=== PATIENT | male | born 1990 | race Caucasian/White ===

== ENCOUNTER 2016-10-05 16:36 | Inpatient (IN) | payer BC, OTHER ==
[~2016-10-05] VITALS: Ht 180.3 cm; Wt 77.1 kg
--- NOTE | 2016-10-09 17:13 | NUR ---
Intake assessment; Patient is a 26 year old male, AOX4, presented to [facility] to detoxify from Heroin and Methamphetamine. Patient is from [place] and arrived at intake office at approximately 1600. he is the primary source of information. Patient appears nervous, anxious but remained cooperative during assessment. Patient's admitting vital signs are as follows; BP 140/86, HR 82, Respirations 18, Spo2 98%, temperature of 97.8, weight of 170lbs and height of 5'11, patient denies pain at this time. NKA, denies seizure history. Educated patient regarding unit policies and protocols, verbalized understanding. Will continue with further interview when patient is up on the unit.
[2016-10-09] MEDS ORDERED: TRAZ-147 PO (17:15)
[2016-10-09] MEDS ORDERED: CLON0.1T PO (17:15)
[2016-10-09] MEDS ORDERED: GABA600T2 PO (17:15)
[2016-10-09] MEDS ORDERED: GABA-534 PO (17:15)
[2016-10-09] MEDS ORDERED: METH-406 PO (17:15)
[2016-10-09] MEDS ORDERED: ONDA-25 PO (17:15)
--- NOTE | 2016-10-09 18:19 | NUR ---
Admission note; Patient is a 26 year old male, AOX4, presented to [facility] to detoxify from Heroin and Methamphetamine. Patient is from [place] and arrived at intake office at approximately 1600. he is the primary source of information. Patient appears nervous, anxious but remained cooperative during assessment. Patient's admitting vital signs are as follows; BP 140/86, HR 82, Respirations 18, Spo2 98%, temperature of 97.8, weight of 170lbs and height of 5'11, patient denies pain at this time. NKA, denies seizure history. Educated patient regarding unit policies and protocols, verbalized understanding. Patient is admitted under the care of Dr. Zimmerman to room 308. Urine provided by patient for urine drug screen. Thorough body and belonging check done by [employer]LAV[employer] COMPOUND[employer]. Discussed substance use history. Patient first started using Heroin when he was 18 year old and progressed to daily use 2 years ago. Currently he smokes /injects via IV approximately 1gram to 1.5 grams of heroin last used 10/09/16 at 1100. Patient also reported using Methamphetamine since he was 19 year old and progressed to daily use 6 months ago. Currently he smokes/inject via IV approximately 1 gram of meth, last used 10/09/16 at 1400. Patient denies any past medical / psychiatric history. Family medical history discussed. His parents both have history of substance and alcohol abuse. Patient lives with his girlfriend and currently works at [employer]. Patient does not have a primary care physician. Skin check done with no significant findings. Patient had multiple attempts to sobriety. Patient was recently at [facility] for 2 days and was discharged on 10/05/16, he then relapsed right after discharge. Patient also reported that he has been to [facility]. Patient current COWS score is 2. Patient oriented to unit by [employer]VOR COMPOUNDER. Detailed report given to MD. Safety measures in place. Will continue to monitor patient.
[2016-10-09 18:44] LABS: *AMPHETAMINE, URINE POSITIVE (NEGATIVE); *BARBITURATE, URINE NEGATIVE (NEGATIVE); *CANNABINOID, URINE NEGATIVE (NEGATIVE); *COCCAINE, URINE NEGATIVE (NEGATIVE); *OPIATE, URINE POSITIVE (NEGATIVE); *PHENCYCLIDINE SCREEN,URINE NEGATIVE (NEGATIVE)
--- NOTE | 2016-10-09 18:55 | NUR ---
End of shift note; Patient is AOX4. MD notified of patient's current condition. Patient to be evaluated by MD during rounds tomorrow. Detailed report given to patient. Met all needs.
[2016-10-09 20:00] VITALS: BP 136/91
[2016-10-09] MEDS ORDERED: BUPRENORPHINE HCL 2 MG TAB.SUBL SL PRN (20:00)
[2016-10-09] MEDS ORDERED: LOPERAMIDE HCL 2 MG CAPSULE PO PRN ×2 (20:00)
[2016-10-09] MEDS ORDERED: METHOCARBAMOL 750 MG TABLET PO PRN (20:00)
[2016-10-09] MEDS ORDERED: MAG HYDROX/AL HYDROX/SIMETH 30 ML LIQUID UDC PO PRN (20:00)
[2016-10-09] MEDS ORDERED: ONDANSETRON ODT 4 MG TAB.RAPDIS SL PRN (20:00)
[2016-10-09] MEDS ORDERED: MAGNESIUM HYDROXIDE 30 ML LIQUID UDC PO PRN (20:00)
[2016-10-09] MEDS ORDERED: PROMETHAZINE HCL 25 MG/1 ML VIAL IM PRN (20:00)
[2016-10-09] MEDS ORDERED: MIRALAX 17 GM POWD.PACK PO PRN (20:00)
[2016-10-09] MEDS ORDERED: HYDROXYZINE PAMOATE 25 MG CAPSULE PO PRN (20:00)
[2016-10-09] MEDS ORDERED: diphenhydrAMINE 50 MG CAPSULE PO PRN (20:00)
[2016-10-09] MEDS ORDERED: CLONIDINE HCL 0.1 MG TABLET PO PRN (20:00)
[2016-10-09] MEDS ORDERED: DICYCLOMINE HCL 20 MG TABLET PO PRN (20:00)
[2016-10-09] MEDS ORDERED: IBUPROFEN 400 MG TABLET PO PRN (20:00)
[2016-10-09] MEDS ORDERED: ACETAMINOPHEN 325 MG TABLET PO PRN (20:00)
--- NOTE | 2016-10-09 20:00 | NUR ---
Start of Shift Patient is a 26-year old, male, admitted for Heroin and Methamphetamine Dependence. Pt denies any medical or psych history. Pt is AAOx4, no SOB noted, ambulatory with steady gait and with intact skin. Pt is on Regular Diet, NKA and is Full Code. Fall, universal and safety prec in place. Call light within reach. Latest COWS=3. Will continue to monitor.
[2016-10-09 20:56] LABS: BASOPHILS % (AUTO) 0.7 % (0.0-2.0); EOSINOPHILS # (AUTO) 0.1 K/uL (0.0-0.7); EOSINOPHILS % (AUTO) 1.6 % (0.0-7.0); HEMOGLOBIN 15.8 G/DL (14.0-18.0); LYMPHOCYTES # (AUTO) 2.1 K/UL (0.8-4.8); LYMPHOCYTES % (AUTO) 30.4 % (20.5-51.5); MEAN CORPUSCULAR HEMOGLOBIN 28.1 UUG (27.0-31.0); MEAN CORPUSCULAR HGB CONC 34 g/dL (32.0-37.0); MEAN CORPUSCULAR VOLUME 82.2 FL (82.0-92.0); MONOCYTES # (AUTO) 0.4 K/UL (0.1-1.30); MONOCYTES % (AUTO) 6.1 % (0.0-11.0); NEUTROPHILS # (AUTO) 4.5 K/UL (1.8-8.9); NEUTROPHILS % (AUTO) 61.2 % (38.5-71.5); PLATELET COUNT (AUTO) 227 K/UL (150-450); WHITE BLOOD COUNT (AUTO) 7.1 K/UL (4.0-11.2)
[2016-10-09 21:02] LABS: ALANINE AMINOTRANSFERASE 42 U/L (16-63); ALKALINE PHOSPHATASE 112 U/L (50-136); AMYLASE 74 U/L (25-115); ASPARTATE AMINOTRANSFERASE 25 U/L (15-37); BILIRUBIN,TOTAL 0.3 mg/dL (0.2-1.0); CARBON DIOXIDE 31 mmol/L (21-32); CHLORIDE 103 mmol/L (98-107); GLUCOSE 99 mg/dL (74-106); LIPASE 133 U/L (73-393); MAGNESIUM 2.2 mg/dL (1.8-2.4); POTASSIUM 3.7 mmol/L (3.5-5.1); TOTAL PROTEIN, SERUM 8.5 g/dL (6.4-8.2); UREA NITROGEN, BLOOD 10 mg/dL (7-18)
--- NOTE | 2016-10-09 21:05 | NUR ---
RN note PRN Trazodone Pt with home med of Trazodone 100 mg PO HS PRN. Contacted Dr. Russell and ordered to continue the medication. Entered at [facility].
[2016-10-09 21:08] LABS: THYROID STIMULATING HORMONE 0.873 mIU/mL (0.358-3.740)
[2016-10-09 21:12] LABS: ETHANOL < 3 MG/DL (0-0)
[2016-10-09] MEDS ORDERED: TRAZODONE 100 MG TABLET PO PRN (21:15)
[2016-10-10] VITALS: BP 127/85
[2016-10-10 04:00] VITALS: BP 130/81
--- NOTE | 2016-10-10 07:06 | NUR ---
End of Shift Patient is a 26-year old, male, admitted for Heroin and Methamphetamine Dependence. Pt denies any medical or psych history. Pt is AAOx4, no SOB noted, ambulatory with steady gait and with intact skin. With mild anxiety noted. Pt is on Regular Diet, NKA and is Full Code. Fall, universal and safety prec in place. Call light within reach. Latest COWS=3, slept for 7 hours. Endorsed to AM shift nurse for continuity of care.
[2016-10-10] MEDS ORDERED: ONDANSETRON 4 MG/2 ML VIAL IM PRN (07:15)
--- NOTE | 2016-10-10 07:45 | NUR ---
START OF SHIFT Rcvd endorsement from ongoing nurse, client is in bed, he is a/o to name, time, place, he presents with depressed mood, flat affect. flushed face, moist skin, enlarged pupils, he reports chills/cold, he denies any N/V/D. He denies SI/HI. Encourage to increase fluid intake as tolerated to facilitate detox. Encourage client to attend group therapy for skills to maintain sobriety. Last COWS 3@ 2400, he slept for 7 hrs. Client admitted for heroin and methamphetamine withdrawal, his urine screen drug tested positive for benzodiazepine; client reports taking Xanax for the first time at age 16, and for the past five years he consumes 2 bars every couple of weeks, last used 2 bars on 10/07/16. PRN Subutex 4mg Q4H for COWS >/= 12 to manage withdrawal symptoms. Client denies hx of withdrawal-induced seizure. Regular Diet, NKA, Full Code. Seizure and fall precautions.. Call light within reach. Side rails x 2 up/padded. Jesse in lowest/locked position. Will continue to monitor.
[2016-10-10 08:36] VITALS: BP 133/89
[2016-10-10] MEDS ORDERED: TUBERCULIN,PURIF.PROT.DERIV. 5 TU/0.1 ML TEST ID ONE (09:00)
[2016-10-10] MEDS: MULTIVITAMINS,THERAPEUTIC TABLET PO SCH (09:46)
--- NOTE | 2016-10-10 09:47 | NUR ---
TB TEST ADMINISTERED TO L F/A, CLIENT TOLERATED WELL.
--- NOTE | 2016-10-10 10:39 | NUR ---
Clinician encouraged client to attend morning group. Client said he was going to start taking his detox meds but would do his best to attend.
--- NOTE | 2016-10-10 10:42 | NUR ---
PRN Subutex 4mg SL Client reports chills/cold, anxiety, he presents with anxious mood, flushed face, longer than normal pupil, teary eyes, yawning. COWS 12. Subutex 4mg SL administered, will continue to monitor.
--- NOTE | 2016-10-10 11:00 | NUR ---
Dr. Zimmerman made aware of client positive for benzodiazepine. Client reports consuming 2 bars every two weeks for the past 5 years, last used 2 days ago prior to admission. NNO to assess for CIWA.
--- NOTE | 2016-10-10 11:12 | NUR ---
Reassessment PRN Subutex 4mg SL Client reports chills/cold, flushed face, longer than normal pupil, teary eyes, yawning x 1. COWS 10. Encourage to increase fluid intake as tolerated to facilitate detox. Will continue to monitor.
[2016-10-10] MEDS: BUPRENORPHINE HCL 2 MG TAB.SUBL SL SCH ×3 (12:29→20:30)
[2016-10-10 12:31] VITALS: BP 146/93
[2016-10-10] MEDS: GABAPENTIN 300 MG CAPSULE PO SCH ×2 (14:05→20:29)
[2016-10-10 16:45] VITALS: BP 147/95
[2016-10-10] MEDS ORDERED: TRAZODONE 100 MG TABLET PO SCH (18:00)
--- NOTE | 2016-10-10 18:54 | NUR ---
END OF SHIFT Endorsed care to incoming nurse, client is in room, he presents with anxious mood, clammy skin, he denies any N/V/D. He is on day first of 5 day Subutex taper with no ASE and effective for managing withdrawal symptoms such as anxiety, irritability, clammy skin, chills, goosebump. PRN Subutex 4mg for COWS 12, after 0.5 hr COWS 10. Last COWS 10 @ 1700. Adequate intake 1210mL and output, void x 2, stool x 1. Client denies a history of withdrawal-induced seizures. NKA, full code, regular diet, placed on fall precautions. Bed in lowest/locked position. Side rails x 2 up/padded. Call light within reach.
--- NOTE | 2016-10-10 18:54 | NUR ---
START OF SHIFT NOTE: Patient endorsed by Angelica day shift nurse. Patient is a 26 year old male admitted to [facility] for Benzodiazepines, Opioid, Meth dependence. Patient is on 5 Day Subutex taper, tolerated well Patient has NKA, is on Regular Diet, and is Full Code status. Patient is on Seizure and Fall Precautions. Patient denies History of Seizure. Patient denies PMH, Past Surgery History. Patient reports of "Heroin IV uses every day 1 gram - 1,5 gram since 2014. Last time - 0.1 gram on 10/09/16". Meth IV/Snored " During 6 months every day of 1 gram. Last used "unknown doze" on 10/09/16". Xanax PO "2 bars every two weeks since 2011. Last used 2 bars on 10/08/16". Last COWS 10 at 16:45. Patient presented with withdrawal S/S of anxiety, agitation, nervousness, sweating, pupil size for Room Light larger than normal size, restlessness, body aches, nose running and tearing, yawning, tachycardia. Last VS at 1645: T:98'3; HR: 96; Room Air O2Sat: 98%; BP 147/95; RR: 18. Respirations even and unlabored. Patient denies SOB and chest pain. Patient denies pain: "0/10". Bowel Sounds is active in all 4 quadrants. Last BM's today "in the morning". Patient denies N/V and diarrhea. Skin is intact, warm and dry by touch. Patient remains compliant with therapeutic plan and medications. All needs met. Safety measures on the place. Call light within reach, bed in the lowest position and locked. Padded rails up x2. Will continue to monitor closely.
[2016-10-10 20:00] VITALS: BP 139/84
[2016-10-11] VITALS: BP 131/98
[2016-10-11 04:00] VITALS: BP 124/81
--- NOTE | 2016-10-11 07:03 | NUR ---
END OF SHIFT NOTE: Patient endorsed to day shift nurse in stable condition. Patient is a 26 year old male admitted to [facility] for Benzodiazepines, Opioid, and Meth dependence. Patient is on 5 Day Subutex taper, tolerated well. Patient has NKA, is on Regular Diet, and is Full Code status. Patient is on Seizure and Fall Precautions. Patient denies History of Seizure. Patient denies PMH, Past Surgery History. Last COWS=6,CIWA=3 at 0400. Patient presented with withdrawal S/S of anxiety, agitation, nervousness, sweating, pupil size for Room Light larger than normal size, restlessness, body aches, nose running and tearing, yawning, and tremors that can be felt. Last VS at 0400: T:98'4; HR: 66; Room Air O2Sat: 99%; BP: 124/81; RR: 18. Respirations even and unlabored. Skin is intact, warm and dry to touch. Patient remains compliant with therapeutic plan and medications. Patient slept 9 hours, intake 750 ml, voided x2. All needs met. Safety measures on the place. Call light within reach, bed in the lowest position and locked. Padded rails up x2.
--- NOTE | 2016-10-11 07:35 | NUR ---
START OF SHIFT Received report from cook night nurse. 26 year old male patient admitted on 10/09/16 for heroin, methamphetamine and Xanax dependence. Pt has been placed on a 5 day Subutex taper and is tolerating well. A/O x4, NKA, full code, regular diet. Denies primary medical history. Pt ambulates with steady gait, no assistance needed. V/S remain WNL. RR even and unlabored. Pt did not need or receive any PRN medications throughout night, slept for 9 hours. Most recent COWS is 6 and CIWA is 3. All needs met at this time. Safety precautions are in place, will continue to monitor.
[2016-10-11 08:06] VITALS: BP 130/94
[2016-10-11] MEDS: GABAPENTIN 300 MG CAPSULE PO SCH ×3 (09:40→20:51)
[2016-10-11] MEDS: BUPRENORPHINE HCL 2 MG TAB.SUBL SL SCH ×3 (09:40→20:51)
[2016-10-11] MEDS: MULTIVITAMINS,THERAPEUTIC TABLET PO SCH (09:40)
[2016-10-11 12:29] VITALS: BP 130/94
--- NOTE | 2016-10-11 13:00 | NUR ---
PT ROUNDING Pt is stable, pt attends groups and activities. No acute discomfort noted. Pt encouraged to verbalize feelings. Will continue to monitor.
[2016-10-11 17:10] VITALS: BP 130/90
--- NOTE | 2016-10-11 18:51 | NUR ---
END OF SHIFT Endorsed to microgrinder operator nurse. 26 year old male patient admitted on 10/09/16 for heroin, methamphetamine and Xanax dependence. Pt has been placed on a 5 day Subutex taper and is tolerating well. A/O x4, NKA, full code, regular diet. Denies primary medical history. No PRN medication needed or administered throughout day. Most recent COWS 4 and CIWA 3. Reports BM x2. Pt reports he feels much better today and is seen socializing with peers, attends groups. All needs met at this time. Has adequate caloric and fluid intake. V/S remain WNL. Safety precautions are in place, will continue to monitor.
[2016-10-11 20:00] VITALS: BP 139/87
--- NOTE | 2016-10-11 20:00 | NUR ---
Start of Shift Patient is a 26-year old, male, admitted for Heroin and Methamphetamine Dependence. Pt denies any medical or psych history. Pt placed on a 5-day Subutex Taper, started on 10/10/2016. Pt is AAOx4, no SOB noted, ambulatory with steady gait and with intact skin. Pt is on Regular Diet, NKA and is Full Code. Fall, universal and safety prec in place. Call light within reach. Latest COWS=3, CIWA=4. No c/o pain at this time. Will continue to monitor.
[2016-10-12] VITALS: BP 132/85
[2016-10-12 04:00] VITALS: BP 133/88
[2016-10-12 04:06] LABS: HEPATITIS B SURFACE AG Negative (Negative)
--- NOTE | 2016-10-12 07:03 | NUR ---
End of Shift Patient is a 26-year old, male, admitted for Heroin and Methamphetamine Dependence. Pt denies any medical or psych history. Pt placed on a 5-day Subutex Taper, started on 10/10/2016. Pt is AAOx4, no SOB noted, ambulatory with steady gait and with intact skin. Pt is on Regular Diet, NKA and is Full Code. Fall, universal and safety prec in place. Call light within reach. Latest COWS=2, CIWA=2, slept for 6 hours. No c/o pain at this time. Endorsed to AM shift nurse for continuity of care.
--- NOTE | 2016-10-12 07:43 | NUR ---
Start of shift note; Received report from night nurse. Patient is a 26 year old male admitted on 10/09/16 for Opiate dependence. Patient was placed on 5 day Subutex taper, no adverse reactions noted. No PMH noted. NKA, on full code status, regular diet. Patient is on full fall precaution. Bed in lowest position, call light within reach. Will continue to monitor patient.
[2016-10-12 08:00] VITALS: BP 129/79
[2016-10-12] MEDS: MULTIVITAMINS,THERAPEUTIC TABLET PO SCH (08:36)
[2016-10-12] MEDS: GABAPENTIN 300 MG CAPSULE PO SCH ×5 (08:36→21:07)
[2016-10-12] MEDS ORDERED: BUPRENORPHINE HCL 2 MG TAB.SUBL SL SCH (09:00)
[2016-10-12 12:00] VITALS: BP 128/87
[2016-10-12] MEDS: BUPRENORPHINE HCL 2 MG TAB.SUBL SL SCH ×2 (14:05→20:59)
[2016-10-12 16:00] VITALS: BP 130/85
--- NOTE | 2016-10-12 18:55 | NUR ---
End of shift note; Patient is AOX4. Patient remained compliant with treatment plan and medication regime. Medications were effective in reducing withdrawal symptoms. All safety measures secured. Met all needs.
--- NOTE | 2016-10-12 19:42 | NUR ---
START OF SHIFT Patient is a 26-year old, male, admitted for Heroin and Methamphetamine Dependence. Pt denies any PMH. Pt placed on a 5-day Subutex Taper, started on 10/10/2016. Pt is A/O X 4, no SOB noted, ambulates with steady.Skin is intact. Pt is on Regular Diet, NKA and is Full Code. Fall, universal and safety precautions in place. Call light within reach. Latest COWS=4, CIWA=2. No c/o pain at this time. Will continue to monitor.
[2016-10-12 20:00] VITALS: BP 127/90
--- NOTE | 2016-10-12 21:27 | NUR ---
PT WAS GIVEN NEURONTIN 300 MG PO.NEW ORDER SEEN FOR NEURONTIN 600 MG AT 2100.CLARIFIED WITH DR JIMÉNEZ.NON ADMINISTERED NEURONTIN 600 MG.WILL ADMINISTER EXTRA DOSE OF 300 MG PER ORDER.
[2016-10-12] MEDS ORDERED: GABAPENTIN 300 MG CAPSULE PO SCH (21:30)
[2016-10-13] VITALS: BP 129/90
[2016-10-13 04:00] VITALS: BP 125/85
--- NOTE | 2016-10-13 06:42 | NUR ---
END OF SHIFT Patient is a 26-year old, male, admitted for Heroin and Methamphetamine Dependence. Pt denies any PMH. Pt placed on a 5-day Subutex Taper, started on 10/10/2016. Pt is A/O X 4, no SOB noted, ambulates with steady.Skin is intact. Pt is on Regular Diet, NKA and is Full Code. Fall, universal and safety precautions in place. Call light within reach. Latest COWS=1, CIWA=1.No PRN meds given last night;Pt slept 6 hrs last night;fluid intake was 1600 mls,voided x 3,BM x 1. No c/o pain at this time. Will continue to monitor.
--- NOTE | 2016-10-13 07:50 | NUR ---
Start of shift note; Received report from night nurse. Patient is a 26 year old male admitted on 10/09/16 for Opiate dependence. Patient was placed on 5 day Subutex taper, no adverse reactions noted. No PMH noted. NKA, on full code status, regular diet. Patient is on full fall precaution. Patient's last COWS is 1 and CIWA of 1 at 0400. Bed in lowest position, call light within reach. Will continue to monitor patient.
[2016-10-13 08:00] VITALS: BP 131/84
[2016-10-13] MEDS: BUPRENORPHINE HCL 2 MG TAB.SUBL SL SCH ×3 (08:34→20:02)
[2016-10-13] MEDS: MULTIVITAMINS,THERAPEUTIC TABLET PO SCH (08:34)
[2016-10-13] MEDS: GABAPENTIN 300 MG CAPSULE PO SCH ×3 (08:34→20:02)
[2016-10-13 12:00] VITALS: BP 120/80
[2016-10-13 16:00] VITALS: BP 130/88
--- NOTE | 2016-10-13 18:30 | NUR ---
End of shift note; Patient is AOX4. Patient remained compliant with treatment plan and medication regime. Medications were effective in reducing withdrawal symptoms. All safety measures secured. Patient's last COWS score is 3 and last CIWA score is 1 at 1600. Met all needs.
--- NOTE | 2016-10-13 20:00 | NUR ---
Start of Shift Note: Report received from day shift nurse. Pt is a 26yo male admitted on 10/09/2016 for medically-supervised withdrawal from opiates and amphetamines. Pt reports using 1-1.5gm heroin daily for 2 years, 1gm methamphetamine daily for 6 months, and 4mg Xanax every two weeks. Pt is on a 5-day Subutex taper. Pt received with last COWS=3, CIWA=1, and no PRN's were given during day shift. Full code status, on regular diet, and reports NKDA/NKFA. Pt reports denies any PMHx. Pt received in room, noted to be flushed and restless, and reports mild anxiety. Bed is in low position and locked, side rails up x2, call light within reach. Will continue to monitor.
[2016-10-13 20:01] VITALS: BP 165/89
[2016-10-14] VITALS: BP 138/97
--- NOTE | 2016-10-14 | NUR ---
COWS/CIWA Deferred: COWS and CIWA deferred for sleep. V/S stable. All safety precautions are in place. Will continue to monitor. Addendum: 10/14/16 at 0219 by RADHA WILD RN Amended: Links added.
[2016-10-14 04:00] VITALS: BP 128/87
--- NOTE | 2016-10-14 04:00 | NUR ---
COWS/CIWA Deferred: COWS/CIWA assessment deferred for sleep. V/S stable. All safety precautions are in place. Will continue to monitor. Addendum: 10/14/16 at 0515 by RADHA WILD RN Amended: Links added.
--- NOTE | 2016-10-14 06:48 | NUR ---
End of Shift Note: Pt is a 26yo male admitted to [facility] on 10/09/2016 for medically-supervised withdrawal from opiates and amphetamines. Pt denies any PMHx. Pt is full code status. Pt is on a regular diet. Pt reports NKDA/NKFA. Pt reports using 1-1.5gm heroin daily for 2 years, 1gm methamphetamine daily for 6 months, and 4mg Xanax every two weeks. Pt continues on a 5-day Subutex taper. Scheduled medication regime effectively managed s/s of withdrawal this shift, and no PRN medications were necessary. Last COWS=6, CIWA=3 at 20:00. V/S stable throughout shift, with elevated HR of 110 at 20:00. Total fluid intake this shift: 2392 ml; output: urine x 2 and BM x 0. Pt is currently in bed and slept 5 hours this shift. All needs have been attended and met. Pt endorsed to day shift nurse.
--- NOTE | 2016-10-14 07:05 | NUR ---
Start of Shift Notes: Received patient in his room. Alert and oriented x 4. Verbally responsive. Able to make needs known. Respirations even and unlabored. No SOB noted. Skin warm and dry to touch. Abdomen soft and non-distended. No complains of N/V/D or abdominal cramps noted. BS (+) in all 4 quadrants. Denies any constipation or diarrhea. Voids independently. Ambulatory with steady gait. Patient is a 26 year old male admitted for opiate and methamphetamine dependence who was placed on a 5-day Subutex taper as ordered. No adverse reactions noted. Denies any past medical hx. NKA. FULL CODE. Regular diet. On fall and seizure precautions. Educated patient on the current plan of care for the day and the medication regimen. Encouraged oral fluid intake and encouraged group participation to learn new skills to prevent relapse. Will continue to monitor closely.
[2016-10-14 08:00] VITALS: BP 132/72
[2016-10-14] MEDS ORDERED: BUPRENORPHINE HCL 2 MG TAB.SUBL SL SCH (09:00)
[2016-10-14] MEDS: GABAPENTIN 300 MG CAPSULE PO SCH ×3 (09:41→20:54)
[2016-10-14] MEDS: MULTIVITAMINS,THERAPEUTIC TABLET PO SCH (09:42)
[2016-10-14 12:00] VITALS: BP 139/91
--- NOTE | 2016-10-14 13:00 | NUR ---
Mid Shift Notes: COWS 2/CIWA 0. Patient is in his room having his lunch. No acute distress noted.
[2016-10-14 15:51] LABS: *AMPHETAMINE, URINE NEGATIVE (NEGATIVE); *BARBITURATE, URINE NEGATIVE (NEGATIVE); *CANNABINOID, URINE NEGATIVE (NEGATIVE); *COCCAINE, URINE NEGATIVE (NEGATIVE); *OPIATE, URINE NEGATIVE (NEGATIVE); *PHENCYCLIDINE SCREEN,URINE NEGATIVE (NEGATIVE)
[2016-10-14 16:00] VITALS: BP 134/89
[2016-10-14] MEDS ORDERED: GABA-534 PO (16:51)
--- NOTE | 2016-10-14 18:44 | NUR ---
End of Shift Notes: Patient is a 26 year old male admitted for ETOH/methamphetamine dependence who was placed on a 5-day Subutex taper as ordered. Last day of taper today. No adverse reactions noted. Prior to admission, patient was using 1-1.5 grams of heroin x 2 years, 1 gram of methamphetamine x 6 months and 2 bars of xanax every 2 weeks. VS monitored closely. No significant abnormalities noted. Withdrawal symptoms were closely monitored. No significant abnormalities noted. Initial COWS 1/CIWA 1 patient presented with mild anxiety. Per patient, Subutex has helped him with her withdrawal symptoms. Compliant with care and treatment. Participated in group. With discharge plans tomorrow. UDS in and resulted. Will continue to monitor.
[2016-10-14 20:00] VITALS: BP 144/94
--- NOTE | 2016-10-14 20:00 | NUR ---
Start of Shift Note: Report received from day shift nurse. Pt is a 26 Y/O male admitted on 10/09/2016 for medically-supervised withdrawal from opiates and amphetamines. Pt reports using heroin 1-1.5gm/day for 2 years, methamphetamine 1gm/day for 6 months, and 4mg Xanax every two weeks. Pt has completed a 5-day Subutex taper and is to discharge tomorrow. Pt received with last COWS=1, CIWA=0, and no PRN's were given during day shift. Full code status, on regular diet, and reports NKDA/NKFA. Pt reports denies any PMHx. Pt received in room, verbalizes readiness for discharge, and denies and s/s of withdrawal. Bed is in low position and locked, side rails up x2, call light within reach. Will continue to monitor.
[2016-10-15] VITALS: BP 122/83
--- NOTE | 2016-10-15 | NUR ---
COWS/CIWA Deferred: COWS and CIWA deferred for sleep. V/S stable. All safety precautions are in place. Will continue to monitor. Addendum: 10/15/16 at 0155 by RADHA WILD RN Amended: Links added.
[2016-10-15 04:00] VITALS: BP 103/63
--- NOTE | 2016-10-15 04:00 | NUR ---
COWS, CIWA Deferred: COWS and CIWA deferred for sleep, V/S stable. Bed in lowest position, side rails up x2, call light within reach. Will continue to monitor. Addendum: 10/15/16 at 0528 by RADHA WILD RN Amended: Links added.
--- NOTE | 2016-10-15 06:55 | NUR ---
End of Shift Note: Pt is a 26 Y/O male admitted to [facility] on 10/09/2016 for medically-supervised withdrawal from opiates and amphetamines. Pt denies PMHx, full code status, regular diet, NKDA/NKFA. Pt reports using 1-1.5gm heroin daily for 2 years, 1gm methamphetamine daily for 6 months, and 4mg Xanax every two weeks. Pt completed a Subutex taper and is to discharge today. Scheduled medication regime effectively managed s/s of withdrawal this shift, and no PRN medications were necessary. Last COWS=1, CIWA=0 at 20:00. V/S stable throughout shift with tachycardia. Total fluid intake this shift: 1301 ml; output: urine x 3 and BM x 2. Pt is currently in bed and slept 5 hours this shift. All needs have been attended and met. Pt endorsed to day shift nurse.
--- NOTE | 2016-10-15 07:15 | NUR ---
Start of shift note SBAR report rcv'd. Pt was admitted for opiate dependence, methamphetamine and benzo abuse. Pt denies any PMhx.Pt has NKA, is a full code and on a regular diet. Pt has completed a 5 day subutex taper without any ASE. Pt is scheduled to discharge today. Pt is currently resting in bed. Pt has no complaints at this time. Will continue to monitor pt.
[2016-10-15 08:00] VITALS: BP 122/77
[2016-10-15] MEDS: GABAPENTIN 300 MG CAPSULE PO SCH (09:13)
[2016-10-15] MEDS: MULTIVITAMINS,THERAPEUTIC TABLET PO SCH (09:13)
--- NOTE | 2016-10-15 09:30 | NUR ---
Discharge note Pt was admitted for opiate dependence. Pt has a COWS of 1 d/t mild anxiety. Pt states that he feels ready for discharge. VS are WNL. LBM was 10/14/16. Pt denies SI/HI. Pt verbalized his understanding of the discharge instructions. All needs addressed at this time. Medications, prescriptions, discharge instructions and all belongings returned to pt. Pt ID band removed, pt ambulated off of unit with [employer]OD[employer] FURNITURE POLISHER, left facility via [facility] [employer].
== END 2016-10-15 09:30 | disposition other institution (70) | DRG 895 ==
LOC: SRC 10-09 16:25
PROVIDERS: ADMIT Internal Medicine; ATTEND Internal Medicine
PROC: HZ2ZZZZ Detoxification Services for Substance Abuse Treatment (ICD-10-PCS; principal; 2016-10-09)
PROC: HZ31ZZZ Individual Counseling for Substance Abuse Treatment, Behavioral (ICD-10-PCS; 2016-10-10)
PROC: HZ41ZZZ Group Counseling for Substance Abuse Treatment, Behavioral (ICD-10-PCS; 2016-10-10)
DX: F11.23 Opioid dependence with withdrawal (principal); F17.210 Nicotine dependence, cigarettes, uncomplicated; Z59.0 Homelessness; Z81.4 Family history of other substance abuse and dependence; F15.120 Other stimulant abuse with intoxication, uncomplicated
CPT/HCPCS: 36415; 70030-TC; 80307; 80324; 80346; 80361; 83690; 83735; 84443; 85025; 86580; 86592; 86705; 86803; 87340; 87806; A4663; G0480

== ENCOUNTER 2017-01-30 00:04 | Inpatient (IN) | payer BC, OTHER ==
[~2017-01-30] VITALS: Ht 182.9 cm; Wt 73.5 kg
[~2017-01-30 00:04] MED LIST: CLON0.1T PO; GABA-534 PO; METH-406 PO; ONDA4TAB10 PO; TRAZ-147 PO
--- NOTE | 2017-01-31 00:20 | NUR ---
INTAKE NOTE: Patient is a 26 year old male, AOX4, presented to [facility] to detoxify from Heroin and Methamphetamine. Patient appears nervous, anxious but remained cooperative during assessment. VS: BP 132/81, HR 90, RR:18, Spo2 98%, T: 98.3, Weight of 162l Lbs and Height of 6.0, patient denies pain at this time. NKA, denies seizure history. Educated patient regarding unit policies and protocols, verbalized understanding. Will continue with further interview when patient is up on the unit.
[2017-01-31 00:30] VITALS: BP 132/81
--- NOTE | 2017-01-31 00:30 | NUR ---
ADMISSION NOTE: Patient is a 26 year old male, admitted to [facility] on 01/31/2017 @ 0030 for medically supervised withdrawal from Opiates and Methamphetamine. Patient has NKA, is on Regular Diet, and is Full Code status. Patient is on Seizure and Fall Precautions. Patient denies History of Seizure. Patient denies PMH, Past Surgery History. COWS 7. Patient appears nervous, anxious but remained cooperative during assessment. Patient's admitting vital signs are as follows; . VS: BP 132/81, HR 90, RR:18, Spo2 98%, T: 98.3, Weight of 162l Lbs and Height of 6.0, patient denies pain at this time. Educated patient regarding unit policies and protocols, verbalized understanding. Patient is admitted under the care of Dr. Malorie MD to room 318. Patient is unable to provide urine for UDS at this time. Substance use history: Patient first started using Heroin when he was 18 year old and progressed to daily. Relapsed 2 days ago after 35 days sobriety. Currently he smokes approximately 1gram of heroin. Last used 01/30/17 at 1900. Patient also reported using Methamphetamine since he was 19 year old. progressed to daily use 2 days ago. Relapsed 2 days ago after 35 days sobriety. Currently he smokes approximately 0.5 gram of methamphetamine daily. Last used 0.5 grams of methamphetamine on 01/30/17 at 1900. Patient denies any past medical / psychiatric history. Family medical history discussed. His parents both, and brother have history of substance and alcohol abuse. Patient lives with his girlfriend and currently works at [employer]. Patient reports primary care physician: Baudilio Moore MD. Skin check done with no significant findings. Patient had multiple attempts to sobriety. Patient reported that he has been to [facility], and [facility] in October,. Patient also reports "recently, 2 days ago, relapsed after [facility] [place]". His longest sobered was 35 days in 12/2016 - 01/2017. Initial assessment done. VS WNL. Respirations unlabored and even. Patient denies SOB and chest pain. Lungs Sounds are clear bilaterally. Bowel Sounds active in all x4 quadrants. Abdomen is soft and non-tender. PERRLA, brisk capillary refill, banquet line cook equal and strong. Skin is intact, warm and dry to touch. Patient did not bring in any home medication and refuses to consent the PNA vaccine. Patient oriented to unit by CALENDER LET OFF OPERATOR. Informed patient of unit's policy and protocols. Verbalized good understanding. All needs met. Safety measures on place. Call light within reach, bed in lowest position and locked, padded rails up bilaterally rails up bilaterally.
[2017-01-31] MEDS ORDERED: DICYCLOMINE HCL 20 MG TABLET PO PRN (00:45)
[2017-01-31] MEDS ORDERED: LOPERAMIDE HCL 2 MG CAPSULE PO PRN ×2 (00:45)
[2017-01-31] MEDS ORDERED: IBUPROFEN 400 MG TABLET PO PRN (00:45)
[2017-01-31] MEDS ORDERED: ACETAMINOPHEN 325 MG TABLET PO PRN (00:45)
[2017-01-31] MEDS ORDERED: diphenhydrAMINE 50 MG CAPSULE PO PRN (00:45)
[2017-01-31] MEDS ORDERED: ONDANSETRON 4 MG/2 ML VIAL IM PRN (00:45)
[2017-01-31] MEDS ORDERED: METHOCARBAMOL 750 MG TABLET PO PRN (00:45)
[2017-01-31] MEDS ORDERED: MAG HYDROX/AL HYDROX/SIMETH 30 ML LIQUID UDC PO PRN (00:45)
[2017-01-31] MEDS ORDERED: CLONIDINE HCL 0.1 MG TABLET PO PRN (00:45)
[2017-01-31] MEDS ORDERED: BUPRENORPHINE HCL 2 MG TAB.SUBL SL PRN (00:45)
[2017-01-31] MEDS ORDERED: ONDANSETRON ODT 4 MG TAB.RAPDIS SL PRN (00:45)
[2017-01-31] MEDS ORDERED: MIRALAX 17 GM POWD.PACK PO PRN (00:45)
[2017-01-31] MEDS ORDERED: HYDROXYZINE PAMOATE 25 MG CAPSULE PO PRN (00:45)
[2017-01-31] MEDS ORDERED: MAGNESIUM HYDROXIDE 30 ML LIQUID UDC PO PRN (00:45)
[2017-01-31 01:48] LABS: BASOPHILS # (AUTO) 0.1 K/uL (0.0-8.0); BASOPHILS % (AUTO) 0.9 % (0.0-2.0); EOSINOPHILS # (AUTO) 0.2 K/uL (0.0-0.7); EOSINOPHILS % (AUTO) 3.1 % (0.0-7.0); HEMATOCRIT 41.5 % (40-50); HEMOGLOBIN 13.9 G/DL (14.0-18.0); LYMPHOCYTES # (AUTO) 2.6 K/UL (0.8-4.8); LYMPHOCYTES % (AUTO) 39.5 % (20.5-51.5); MEAN CORPUSCULAR HEMOGLOBIN 28.3 UUG (27.0-31.0); MEAN CORPUSCULAR HGB CONC 34 g/dL (32.0-37.0); MEAN CORPUSCULAR VOLUME 84.1 FL (82.0-92.0); MONOCYTES # (AUTO) 0.6 K/UL (0.1-1.30); MONOCYTES % (AUTO) 8.6 % (0.0-11.0); NEUTROPHILS # (AUTO) 3.2 K/UL (1.8-8.9); NEUTROPHILS % (AUTO) 47.9 % (38.5-71.5); PLATELET COUNT (AUTO) 197 K/UL (150-450); RED BLOOD CELL COUNT(AUTO) 4.93 MIL/UL (4.7-6.1); WHITE BLOOD COUNT (AUTO) 6.7 K/UL (4.0-11.2)
[2017-01-31 02:13] LABS: ETHANOL < 3 MG/DL (0-0)
[2017-01-31 02:23] LABS: ALANINE AMINOTRANSFERASE 30 U/L (16-63); ALKALINE PHOSPHATASE 87 U/L (50-136); AMYLASE 62 U/L (25-115); ASPARTATE AMINOTRANSFERASE 19 U/L (15-37); BILIRUBIN,TOTAL 0.5 mg/dL (0.2-1.0); CARBON DIOXIDE 32 mmol/L (21-32); CHLORIDE 103 mmol/L (98-107); CREATININE 1.1 mg/dL (0.6-1.3); GLUCOSE 90 mg/dL (74-106); LIPASE 112 U/L (73-393); MAGNESIUM 1.9 mg/dL (1.8-2.4); POTASSIUM 3.8 mmol/L (3.5-5.1); TOTAL PROTEIN, SERUM 7.6 g/dL (6.4-8.2); UREA NITROGEN, BLOOD 19 mg/dL (7-18)
[2017-01-31 02:30] LABS: THYROID STIMULATING HORMONE 1.598 mIU/mL (0.358-3.740)
[2017-01-31 04:00] VITALS: BP 124/85
--- NOTE | 2017-01-31 07:07 | NUR ---
END OF SHIFT NOTE: Patient endorsed to day shift nurse in stable condition. Patient is a 26 year old male admitted to [facility] on 01/31/2017 for Opioid and Methamphetamine dependence. Patient reports NKA, is on Regular Diet, and is Full Code status. Patient is on Seizure and Fall Precautions. Patient denies History of Seizure. Substance use history: Patient first started using Heroin when he was 18 year old and progressed to daily. Relapsed 2 days ago after 35 days sobriety. Currently he smokes approximately 1gram of heroin. Last used 01/30/17 at 1900. Patient also reported using Methamphetamine since he was 19 year old. progressed to daily use 2 days ago. Relapsed 2 days ago after 35 days sobriety. Currently he smokes approximately 0.5 gram of methethamphetamine daily. Last used 0.5 grams of methamphetamine on 01/30/17 at 1900. Patient denies any past medical / psychiatric history. Family medical history discussed. His parents both, and brother have history of substance and alcohol abuse. Last COWS=6 at 0400. Patient presented with anxiety, agitation, nervousness, sweating, pupil size for Room Light larger than normal size, restlessness, body aches, nasal stuffy, yawning, and tremors that can be felt. Last VS at 0400: T:98'1; HR: 66; Room Air O2Sat: 99%; BP: 124/85; RR: 14. Pain "0/10". Respirations even and unlabored. Skin is intact, warm and dry to touch. Patient slept 3 hours, intake 355 ml. Patient was unable to provide urine for UDS. All needs met. Safety measures on the place. Call light within reach, bed in the lowest position and locked. Padded rails up bilaterally. Patient endorsed to day shift nurse. Report given.
--- NOTE | 2017-01-31 07:15 | NUR ---
Start of Shift Endorsement received from nightshift nurse. Pt is a 26 y/o male admitted for Heroin and Meth dependence. Pt has not been placed on a taper until farther assessment by the MD. Pt's symptoms are being managed by PRN medications. Pt has not received any PRN medications. PT has not provided a urine sample for UDS. Pt reports sleeping 6 hours. VS WNL. Full Code. Pt is alert and oriented x4. Pt is in STABLE condition at this time. Remains compliant with medication and diet regimen. All needs have been met, All safety measures in place per hospital policy. Bed in lowest position, side rails up x2, call-light within reach. Will continue to monitor.
[2017-01-31 08:00] VITALS: BP 132/78
[2017-01-31] MEDS ORDERED: TUBERCULIN,PURIF.PROT.DERIV. 5 TU/0.1 ML TEST ID ONE (09:00)
[2017-01-31] MEDS: MULTIVITAMINS,THERAPEUTIC TABLET PO SCH (09:36)
[2017-01-31 12:00] VITALS: BP 135/75
[2017-01-31] MEDS: GABAPENTIN 300 MG CAPSULE PO SCH ×2 (13:00→17:17)
[2017-01-31] MEDS: BUPRENORPHINE HCL 2 MG TAB.SUBL SL SCH ×3 (13:00→21:32)
[2017-01-31 16:00] VITALS: BP 145/88
[2017-01-31 16:58] LABS: *AMPHETAMINE, URINE POSITIVE (NEGATIVE); *BARBITURATE, URINE NEGATIVE (NEGATIVE); *CANNABINOID, URINE NEGATIVE (NEGATIVE); *COCCAINE, URINE NEGATIVE (NEGATIVE); *OPIATE, URINE POSITIVE (NEGATIVE); *PHENCYCLIDINE SCREEN,URINE NEGATIVE (NEGATIVE)
--- NOTE | 2017-01-31 18:57 | NUR ---
End of Shift Endorsement given to nightshift nurse. Pt is a 26 y/o male admitted for Heroin and Meth dependence. Pt has been placed on a modified Subutex taper. Pt refused first dose reporting that he just wanted to sleep. PT begun the Subutex taper at 1700. Pt is tolerating the detox process, moderately withdrawing AEB COWS 12 @ 1600. Educated pt on S/S of withdrawals, educated pt on diet regimen and encouraged pt to drink more fluids. Pt participated in groups and activities. intake: 1200ml, Void 2, BM x0. Pt has not received any PRN medications. VS WNL. Full Code. Pt is alert and oriented x4. Pt is in STABLE condition at this time. Remains compliant with medication and diet regimen. All needs have been met, All safety measures in place per hospital policy. Bed in lowest position, side rails up x2, call-light within reach. Will continue to monitor.
--- NOTE | 2017-01-31 19:40 | NUR ---
Start of shift note PAtient is a 26 year old male admitted to [facility] on 01-30-17 for opiate detox. He has NKA, is a full code, on a regular diet with fall and seizure precautions in place. Patient has no known seizure history. No past medical history noted. HE is on a modified subutex taper. His last COWS was 12 at 1600. Vital signs are stable. He is in bed at change of shift resting with eyes closed. Offered no current complaints. Side rails up x 2, call light within reach, bed locked and in lowest position.
[2017-01-31 20:00] VITALS: BP 138/84
[2017-01-31] MEDS: TRAZODONE 100 MG TABLET PO SCH (21:32)
--- NOTE | 2017-02-01 | NUR ---
VITAL SIGNS REFUSED/COWS DEFERRED PATIENT REFUSED VITAL SIGNS AT 0000 COWS DEFERRED FOR SLEEP
[2017-02-01 04:00] VITALS: BP 142/70
--- NOTE | 2017-02-01 04:52 | NUR ---
PRN MEDICATION PATIENT WITH NOTED ANXIETY, RESTLESSNESS AND BODYACHES OF 4 OUT OF 10. PATIENT RECEIVED PRN MOTRIN 400 MG PO FOR PAIN, CLONIDINE 0.1 MG PO AND VISTARIL 50 MG PO FOR ANXIETY/RESTLESSNESS. EFFECT PENDING.
--- NOTE | 2017-02-01 05:55 | NUR ---
REASSESSMENT OF PATIENT PATIENT REASSESSED ONE HOUR AFTER HE RECEIVED PRN MOTRIN 400 MG PO FOR PAIN, CLONIDINE 0.1 MG PO AND VISTARIL 50 MG PO FOR ANXIETY/RESTLESSNESS. EFFECTIVENESS NOTED WITH REPORT OF DECREASED ANXIETY AND NO FURTHER PAIN.
[2017-02-01 06:06] LABS: HEPATITIS B SURFACE AG Negative (Negative)
--- NOTE | 2017-02-01 06:44 | NUR ---
END of SHIFT Note Patient is a 26 year old male admitted to [facility] on 01-30-17 for opiate detox. He has NKA, is a full code, on a regular diet with fall and seizure precautions in place. Patient has no known seizure history. No past medical history noted. He is on a modified Subutex taper. Vital signs at 2000 BP 138/84, P 64, SPO2 (8% on RA, R 16, T 97.6 COWS 8. Patient VS at 0400 BP 142/70, P 68, R 18, SPO2 98% on RA, T 98.6. COWS 9. Patient received Clonidine 0.1 mg PO at 0452 for anxiety/restlessness. Patient received PRN Vistaril 50 mg PO at 0452 for anxiety, Patient received Motrin 400 mg PO for body aches aat 0452 with good effect noted. Patient intake 1094 ML Void x 1, Slept 6 hours. Safety measures in place. Side rails up x 2, call light within reach, bed locked and in lowest position.
--- NOTE | 2017-02-01 07:10 | NUR ---
Start of Shift Endorsement received from nightshift nurse. Pt is a 26 y/o male admitted for Heroin and Meth dependence. Pt has been placed on a modified Subutex taper. Taper was initiated on 01/31/17. Pt is tolerating the taper and moderately withdrawing AEB COWS 9. Pt reports sleeping 7 hours. VS WNL. Full Code. Pt is alert and oriented x4. Pt is in STABLE condition at this time. Remains compliant with medication and diet regimen. All needs have been met, All safety measures in place per hospital policy. Bed in lowest position, side rails up x2, call-light within reach. Will continue to monitor.
[2017-02-01 08:00] VITALS: BP 115/73
[2017-02-01] MEDS: MULTIVITAMINS,THERAPEUTIC TABLET PO SCH (08:55)
[2017-02-01] MEDS: GABAPENTIN 300 MG CAPSULE PO SCH ×3 (08:55→16:35)
[2017-02-01] MEDS ORDERED: BUPRENORPHINE HCL 2 MG TAB.SUBL SL SCH (09:00)
[2017-02-01 12:00] VITALS: BP 113/68
[2017-02-01] MEDS: BACLOFEN 10 MG TABLET PO SCH ×2 (15:18→21:00)
[2017-02-01] MEDS: BUPRENORPHINE HCL 2 MG TAB.SUBL SL SCH ×2 (15:18→21:00)
[2017-02-01 16:00] VITALS: BP 121/75
[2017-02-01] MEDS ORDERED: HYDROXYZINE PAMOATE 25 MG CAPSULE PO PRN (17:00)
[2017-02-01] MEDS ORDERED: KETOROLAC TROMETHAMINE 30 MG INJ IM PRN (17:00)
[2017-02-01] MEDS ORDERED: IBUPROFEN 600 MG TABLET PO PRN (17:00)
--- NOTE | 2017-02-01 19:11 | NUR ---
End of Shift Endorsement given to nightshift nurse. Pt is a 26 y/o male admitted for Heroin and Meth dependence. Pt has been placed on a modified Subutex taper. Pt is tolerating the detox process, moderately withdrawing AEB COWS 4 @ 1600. Educated pt on S/E of medications, educated pt on diet regimen and encouraged pt to drink more fluids. Pt participated in groups and activities. Pt did not get any PRN medications. Pt reports readiness for sobriety. intake: 1700ml, Void 2, BM x1. Pt has not received any PRN medications. VS WNL. Full Code. Pt is alert and oriented x4. Pt is in STABLE condition at this time. Remains compliant with medication and diet regimen. All needs have been met, All safety measures in place per hospital policy. Bed in lowest position, side rails up x2, call-light within reach. Will continue to monitor.
--- NOTE | 2017-02-01 19:50 | NUR ---
START OF SHIFT Received report from day shift nurse. Pt is lying in bed resting. He is a 26 yo male admitted to [facility] on 01/31 for opiate dependence. He is A&O and ambulatory. NKA, full code status, and on a regular diet. He did not report any PMH. On admission he admitted to using heroin 1 gram per day and methamphetamine 0.5 grams per day. Modified subutex taper started on 01/31. Pt is lying in bed resting with eyes closed and is easily arousable. Fall and seizure precautions in place. Bed is down with call light in reach.
[2017-02-01 20:00] VITALS: BP 128/64
--- NOTE | 2017-02-01 20:00 | NUR ---
2000 COWS deferred COWS ordered Q4HWA. Pt is lying in bed resting with eyes closed. Respirations even and unlabored. Safety measures in place.
[2017-02-01] MEDS: CLONIDINE HCL 0.1 MG TABLET PO SCH (21:00)
[2017-02-01] MEDS: TRAZODONE 100 MG TABLET PO SCH (21:00)
--- NOTE | 2017-02-01 21:59 | NUR ---
2100 medications held 2100 medications held due to patient sleeping. aware.
[2017-02-02] VITALS: BP 112/65
--- NOTE | 2017-02-02 | NUR ---
0000 COWS deferred COWS ordered Q4HWA. Pt is lying in bed resting with eyes closed. Vital signs obtained. Respirations even and unlabored. Safety measures in place.
--- NOTE | 2017-02-02 04:00 | NUR ---
0400 Vitals refused/COWS deferred Pt refused to be woken for 0400 vitals. He is lying in bed resting with eyes closed. Respirations even and unlabored. COWS ordered Q4HWA. Safety measures in place.
--- NOTE | 2017-02-02 07:19 | NUR ---
END OF SHIFT Report provided to day shift nurse. Pt is lying in bed resting. He is a 26 yo male admitted to [facility] on 01/31 for opiate dependence. He is A&O and ambulatory. NKA, full code status, and on a regular diet. Pt denied any PMH. Upon admission he reported using heroin 1 gram per day and methamphetamine 0.5 grams per day. Modified subutex taper started on 01/31. Pt slept throughout the shift for a total of 11 hours. 2100 medications held due to sleep and MD is aware. Fall and seizure precautions in place. Bed is down with call light in reach.
--- NOTE | 2017-02-02 07:56 | NUR ---
BEGINNING OF SHIFT Patient is a 26 year old male, with admitting Dx:oPIATE Dependence, with substance use of: methamphetamine. Patient with past medical history of: subsagtnce use and tobacco dependence. Patient received no PRNs during carving machine operator. . Fall and seizure precautions in place. Patient skin is intact. Per carving machine operator patient slept for 11 hours. Patient continues on 4 day subtex taper as ordered Patient received in bed awake, alert and oriented x4, educated patient regarding plan of care for the day and medication regimen with good verbal understanding. Safety measures in place. call light kept with in reach, will continue to monitor closely.
[2017-02-02 08:40] VITALS: BP 154/98
[2017-02-02] MEDS: MULTIVITAMINS,THERAPEUTIC TABLET PO SCH (08:41)
[2017-02-02] MEDS: CLONIDINE HCL 0.1 MG TABLET PO SCH ×2 (08:41→20:43)
[2017-02-02] MEDS: BUPRENORPHINE HCL 2 MG TAB.SUBL SL SCH ×3 (08:41→20:44)
[2017-02-02] MEDS: GABAPENTIN 300 MG CAPSULE PO SCH ×3 (08:41→16:57)
[2017-02-02] MEDS: BACLOFEN 10 MG TABLET PO SCH (08:41)
[2017-02-02 12:48] VITALS: BP 113/66
[2017-02-02] MEDS ORDERED: NAPROXEN 500 MG TABLET PO ONE (13:00)
[2017-02-02] MEDS: BACLOFEN 20 MG TABLET PO SCH ×2 (14:37→20:44)
[2017-02-02] MEDS ORDERED: METHYL SALICYLATE/MENTHOL CREAM 28 GM TUBE TOP PRN (17:00)
[2017-02-02 17:20] VITALS: BP 108/60
--- NOTE | 2017-02-02 19:07 | NUR ---
END OF SHIFT Patient alert and oriented x4, patient compliant with therapeutic plan of care. vital signs were stable during shift. Patient continues on Subutex taper as ordered and is currently on day 3 of taper, well tolerated, no ASE noted. Patient with admitting Dx:Opiate dependence. 0900 assessment presented with: restlessness, dilated pupils, mild bone and joint aches, nasal stuffiness, yawning, irritability, and anxiety with cow score of: 9; 1300 assessment patient presented with: difficulty sitting still, dilate pupils, mild bone and joint aches, yawning, irritability, and anxiety with cow score of: 6; 1700 assessment patient presented with: dilated pupils, mild bone and joint aches, and mild anxiety with cow score of: 3. Detox medication effective at reducing withdrawal symptom. Patient was administered no PRNs during shift. Patient was encouraged to increase PO fluid intake as tolerated. Patient denies SI/HI. MD is aware of patients current status, continues under close observation. Patient endorsed to surveying teacher nurse, all pertinent information discussed.
[2017-02-02 20:05] VITALS: BP 150/91
--- NOTE | 2017-02-02 20:05 | NUR ---
START OF SHIFT Patient is 26 year old male admitted on 01/31/17 for opiod and methamphetamine dependence. Patient has history of heroin use of 1 gram smoked daily for 2 months and methamphetamine 0.5gram smoked daily for 2 months. Patient has no past medical history. Patient is FULL CODE, on regular diet, with NKA. Patient is on a modified 4 day Subutex taper, tolerating well. Patient is attending a group meeting. Patient returned to his room after group. Patient is alert and oriented x4, ambulatory. Patient reports lower back pain 4/10. Patient's respirations are even and unlabored. Patient is on seizure and fall precautions. Bed is down with call light within reach.
[2017-02-02] MEDS: TRAZODONE 100 MG TABLET PO SCH (20:43)
[2017-02-02] MEDS: NAPROXEN 500 MG TABLET PO SCH (20:43)
--- NOTE | 2017-02-02 20:51 | NUR ---
BLESSING MALHOTRA Patient complained of lower back pain, 4/10 and stomach cramps. PRN Raza was given.
--- NOTE | 2017-02-02 21:51 | NUR ---
PRN ROXANA AND JOCELYN REASSESSMENT PRN Abbyyl effective, patient verbalizes relief from stomach cramps. PRN Jesse-Eliana effective. Patient verbalizes lower back pain improved.
[2017-02-03] VITALS: BP 109/55
[2017-02-03 04:01] VITALS: BP 105/63
--- NOTE | 2017-02-03 04:01 | NUR ---
COWS DEFERRED COWS deferred, patient is asleep in bed. Respirations even and unlabored. Vital signs obtained.
--- NOTE | 2017-02-03 07:10 | NUR ---
END OF SHIFT Report provided to day shift nurse. Patient is 26 year old male admitted on 01/31/17 for opioid and methamphetamine dependence. Patient has history of heroin use of 1 gram smoked daily for 2 months and methamphetamine 0.5gram smoked daily for 2 months. Patient has no past medical history. Patient is FULL CODE, on regular diet, with NKA. Patient is on a modified 4 day Subutex taper, tolerating well. Patient received PRN Bentyl and Jesse-Monroy at 2050. Patient slept for 7 hours, with a total intake of 2547mL and 3 voids, stool x0. Last COWS score was 3 at 2034. Safety measures in place.
--- NOTE | 2017-02-03 07:11 | NUR ---
Start of Shift Notes: Received patient in his room. Alert and oriented x 4. Verbally responsive. Able to make needs known. Respirations even and unlabored. No SOB noted. Skin warm and dry to touch. Abdomen soft and non-distended with (+) BS in all 4 quadrants. No complains of N/V/D or constipation noted at this time. Bladder non-distended. No complains of dysuria noted. Voids independently. Ambulatory ad honorio with steady gait. Patient is a 26 year old male admitted for opiate and methamphetamine dependence who was placed on a modified Subutex taper as ordered. No adverse reactions noted. NKA. FULL CODE. Regular diet. On fall precautions. Educated patient on his current plan of care for the day and his medication regimen. Encouraged oral fluid intake and encouraged group participation to learn new skills to prevent relapse. Will continue to monitor closely.
[2017-02-03 08:00] VITALS: BP 124/78
[2017-02-03] MEDS: BACLOFEN 20 MG TABLET PO SCH ×3 (08:52→21:00)
[2017-02-03] MEDS: NAPROXEN 500 MG TABLET PO SCH ×2 (08:53→21:00)
[2017-02-03] MEDS: FAMOTIDINE 20 MG TABLET PO SCH (08:53)
[2017-02-03] MEDS: CLONIDINE HCL 0.1 MG TABLET PO SCH ×2 (08:53→21:00)
[2017-02-03] MEDS: MULTIVITAMINS,THERAPEUTIC TABLET PO SCH (08:53)
[2017-02-03] MEDS: GABAPENTIN 300 MG CAPSULE PO SCH ×3 (08:53→17:02)
[2017-02-03] MEDS ORDERED: BUPRENORPHINE HCL 2 MG TAB.SUBL SL SCH (09:00)
[2017-02-03 12:00] VITALS: BP 122/79
[2017-02-03 16:00] VITALS: BP 118/69
[2017-02-03] MEDS ORDERED: METH28OI2 TOP (17:59)
[2017-02-03] MEDS ORDERED: FAMO20TA8 PO (17:59)
[2017-02-03] MEDS ORDERED: DICY20TA28 PO (17:59)
[2017-02-03] MEDS ORDERED: HYDR-3895 PO (17:59)
[2017-02-03] MEDS ORDERED: TRAZ-147 PO (17:59)
[2017-02-03] MEDS ORDERED: BACL20TA PO (17:59)
[2017-02-03] MEDS ORDERED: DIPH50CA37 PO (17:59)
[2017-02-03] MEDS ORDERED: NAPR500T3 PO (17:59)
[2017-02-03] MEDS ORDERED: GABA-534 PO (17:59)
[2017-02-03] MEDS ORDERED: CLON0.1T14 PO (17:59)
--- NOTE | 2017-02-03 18:56 | NUR ---
End of Shift Notes: Patient completed modified Subutex taper as ordered. Tolerating taper well. No adverse reactions noted. VS monitored closely. No significant abnormalities noted. Withdrawal symptoms were closely monitored. Initial COWS 8, patient presented with mild anxiety, restless legs, chillsl hot flashes, and mild body aches. Per patient, Subutex has been helping him with his withdrawal symptoms. Last COWS 3. Patient compliant with care and treatment. Able to participate in group and activities. All needs met and attended. Will continue to monitor closely.
--- NOTE | 2017-02-03 19:10 | NUR ---
Start of Shift Patient Received. Patient is in his room sleeping but easily aroused to verbal stimuli. Breathing even and non labored. No signs of pain or discomfort noted. Patient is a 26 year old male admitted on 01/30/17 for Opiate Dependence under the care of Dr. Espana. Patient verbalized no known allergies, wishes to be full code, following a regular diet, placed on fall and seizure precautions, skin noted intact. Per endorsement patient is set for discharge tomorrow 02/04/17. Last noted COWS 3. All needs attended to promptly. Will continue plan of care as ordered.
[2017-02-03 20:15] VITALS: BP 113/68
[2017-02-03] MEDS: TRAZODONE 100 MG TABLET PO SCH (21:00)
[2017-02-04 00:36] VITALS: BP 98/56
[2017-02-04 04:35] VITALS: BP 118/77
--- NOTE | 2017-02-04 07:00 | NUR ---
Start of Shift Endorsement received from nightshift nurse. Pt is a 26 y/o male admitted for Heroin and Meth dependence. Pt has been placed on a modified Subutex taper. PT has completed his taper and will be discharged today, 02/04/17. Pt has received discharge education and all discharge paperwork has been completed. Pt reports readiness for discharge. Pt is tolerating the taper and moderately withdrawing AEB COWS 1. Pt reports sleeping 7 hours. VS WNL. Full Code. Pt is alert and oriented x4. Pt is in STABLE condition at this time. Remains compliant with medication and diet regimen. All needs have been met, All safety measures in place per hospital policy. Bed in lowest position, side rails up x2, call-light within reach. Will continue to monitor.
--- NOTE | 2017-02-04 07:18 | NUR ---
End of Shift Patient is in bed awake, alert and verbally responsive. Breathing even and non labored. No signs of pain or discomfort noted. Patient is a 26 year old male admitted on 01/30/17 for Opiate Dependence under the care of Dr. Espana. No known allergies. Full Code. Regular Diet. Placed on fall and seizure precautions. Skin noted intact. Patient refused 2100 medications. Last noted COWS 2. No PRN Medications administered. Patient is set for discharge today 02/04/17. All needs attended to promptly. Will endorse to continue plan of care as ordered. Addendum: 02/04/17 at 0720 by DINESH VALDEZ LVN Amended: Links added.
[2017-02-04 08:00] VITALS: BP 136/74
[2017-02-04 08:27] VITALS: BP 136/78
[2017-02-04] MEDS: BACLOFEN 20 MG TABLET PO SCH (08:27)
[2017-02-04] MEDS: NAPROXEN 500 MG TABLET PO SCH (08:27)
[2017-02-04] MEDS: CLONIDINE HCL 0.1 MG TABLET PO SCH (08:27)
[2017-02-04] MEDS: FAMOTIDINE 20 MG TABLET PO SCH (08:27)
[2017-02-04] MEDS: MULTIVITAMINS,THERAPEUTIC TABLET PO SCH (08:27)
[2017-02-04] MEDS: GABAPENTIN 300 MG CAPSULE PO SCH (08:27)
--- NOTE | 2017-02-04 09:45 | NUR ---
Discharge note PT has been discharged from [facility] to [facility]. PT is in Stable condition, VS WNL. Denies suicidal and homicidal ideations at this time. . All documentation has been completed, paperwork signed and dated. Pt left with all of his belongings, medications and prescriptions. Pt has been discharged from [facility] on 02/04/17 at 0945. has been Notified.
== END 2017-02-04 09:45 | disposition other institution (70) | DRG 895 ==
LOC: SRC 00:04
PROVIDERS: ADMIT Internal Medicine; ATTEND Internal Medicine
PROC: HZ2ZZZZ Detoxification Services for Substance Abuse Treatment (ICD-10-PCS; principal; 2017-01-30)
PROC: HZ41ZZZ Group Counseling for Substance Abuse Treatment, Behavioral (ICD-10-PCS; 2017-02-01)
DX: F11.23 Opioid dependence with withdrawal (principal); I15.9 Secondary hypertension, unspecified; F32.9 Major depressive disorder, single episode, unspecified; G47.00 Insomnia, unspecified; F15.23 Other stimulant dependence with withdrawal; Z82.49 Family history of ischemic heart disease and other diseases of the circulatory system; Z80.1 Family history of malignant neoplasm of trachea, bronchus and lung; Z81.1 Family history of alcohol abuse and dependence; F17.210 Nicotine dependence, cigarettes, uncomplicated; E86.0 Dehydration; D64.9 Anemia, unspecified; R79.89 Other specified abnormal findings of blood chemistry; F41.9 Anxiety disorder, unspecified
CPT/HCPCS: 36415; 70030-TC; 80307; 80324; 80361; 83690; 83735; 84443; 85025; 86592; 86705; 86803; 87340; 87806; A4663; G0480

== ENCOUNTER 2017-06-21 20:48 | Inpatient (IN) | payer BC, OTHER ==
[~2017-06-21] VITALS: Ht 182.9 cm; Wt 77.1 kg
[~2017-06-21 20:48] MED LIST changes: +BACL20TA PO; -CLON0.1T PO; +CLON0.1T14 PO; +DICY20TA28 PO; +DIPH50CA37 PO; +FAMO20TA8 PO; +HYDR-3895 PO; -METH-406 PO; +METH28OI2 TOP; +NAPR500T4 PO; -ONDA4TAB10 PO
--- NOTE | 2017-06-21 22:50 | NUR ---
Pre-Admission Assessment BP: 142/84, HR: 86, RR:18, SpO2: 99% T:98.1 Pt seen at intake, in stable condition to be admitted on the unit. Unit protocols regarding medications and vitals signs explained. Pt verbalized understanding. Will continue admission upon arrival on the unit.
[2017-06-21] MEDS ORDERED: IBUPROFEN 600 MG TABLET PO PRN (23:00)
[2017-06-21] MEDS ORDERED: MIRALAX 17 GM POWD.PACK PO PRN (23:00)
[2017-06-21] MEDS ORDERED: CLONIDINE HCL 0.1 MG TABLET PO PRN (23:00)
[2017-06-21] MEDS ORDERED: ONDANSETRON ODT 4 MG TAB.RAPDIS SL PRN (23:00)
[2017-06-21] MEDS ORDERED: ACETAMINOPHEN 325 MG TABLET PO PRN (23:00)
[2017-06-21] MEDS ORDERED: ONDANSETRON 4 MG/2 ML VIAL IM PRN (23:00)
[2017-06-21] MEDS ORDERED: METHOCARBAMOL 750 MG TABLET PO PRN (23:00)
[2017-06-21] MEDS ORDERED: LOPERAMIDE HCL 2 MG CAPSULE PO PRN ×2 (23:00)
[2017-06-21] MEDS ORDERED: MAGNESIUM HYDROXIDE 30 ML LIQUID UDC PO PRN (23:00)
[2017-06-21] MEDS ORDERED: MAG HYDROX/AL HYDROX/SIMETH 30 ML LIQUID UDC PO PRN (23:00)
[2017-06-21] MEDS ORDERED: NICOTINE 14 MG/24HR PATCH TD PRN (23:00)
[2017-06-21] MEDS ORDERED: LORAZEPAM 1 MG TABLET PO PRN (23:00)
[2017-06-21] MEDS ORDERED: NICOTINE POLACRILEX 4 MG GUM-PK OF TEN BC PRN (23:00)
[2017-06-21] MEDS ORDERED: DICYCLOMINE HCL 20 MG TABLET PO PRN (23:00)
[2017-06-21] MEDS ORDERED: BUPRENORPHINE HCL 2 MG TAB.SUBL SL PRN (23:00)
[2017-06-21 23:05] VITALS: BP 142/84
--- NOTE | 2017-06-21 23:05 | NUR ---
Admission Note Pt is a 26 year old male admitted on 06/22/17 for Opiate withdrawal, full code, regular diet with NKA. PT reports his primary care provider is Dr. Astudillo in [place], denies being hospitalized within the past 30 days and denies taking any home medications. Pt reports he smokes 1 pack of cigarettes/daily. Substance use is as follows: 1. Heroin IV/smoke 1g/daily, last intake of 0.1g on 06/21/2017 an hour prior to arrival, has relapsed and has been taking at this rate for the past 3 weeks. 2. Methamphetamine IV/smoke 0.5g/daily, last intake of 0.2g on 06/21/2017 an hour prior to arrival, also has been using for the past 3 weeks. When pt goes through withdrawal he reports s/s of: "My body starts to ache, I sweat, I just feeling very uncomfortable". Pt longest sobriety period is for 55 days from Jan. Treatment history is as follows: [facility] [place], December, [facility], [facility] January 2017 [facility], January-February 2017 PMH: Anxiety, depression and insomnia. Upon assessment, pt is alert and oriented x4, speech is clear and audible. Pt reports mild body aches. Heart rate regular. Denies chest pain or SOB. PERRLA, breathing is even and unlabored, lung sounds clear. Abdomen is soft and non-distended. Bowel sounds present in all quadrants. Pt reports that BM is regular or every other day. Pt is noted with healing scabs on face d/t methamphetamine use. Pt oriented to room and unit. Safety measures in place. Will continue to monitor.
[2017-06-21 23:13] LABS: BASOPHILS # (AUTO) 0.1 K/uL (0.0-8.0); BASOPHILS % (AUTO) 0.7 % (0.0-2.0); EOSINOPHILS # (AUTO) 0.3 K/uL (0.0-0.7); EOSINOPHILS % (AUTO) 3.5 % (0.0-7.0); HEMATOCRIT 41.3 % (36.7-47.1); HEMOGLOBIN 14.1 g/dL (12.5-16.3); LYMPHOCYTES # (AUTO) 3.4 K/uL (20.0-40.0); LYMPHOCYTES % (AUTO) 35.5 % (20.5-51.5); MEAN CORPUSCULAR HEMOGLOBIN 29.2 uug (23.8-33.4); MEAN CORPUSCULAR HGB CONC 34 g/dL (32.5-36.3); MEAN CORPUSCULAR VOLUME 85.5 fL (73.0-96.2); MONOCYTES # (AUTO) 0.7 K/uL (2.0-10.0); MONOCYTES % (AUTO) 7.9 % (0.0-11.0); NEUTROPHILS % (AUTO) 52.4 % (38.5-71.5); PLATELET COUNT (AUTO) 211 K/uL (152-348); RED BLOOD CELL COUNT(AUTO) 4.84 MIL/uL (4.06-5.63); WHITE BLOOD COUNT (AUTO) 9.5 K/uL (3.6-10.2)
[2017-06-21 23:49] LABS: ETHANOL < 3 MG/DL (0-0)
[2017-06-21 23:50] LABS: ALANINE AMINOTRANSFERASE 35 U/L (16-63); ALKALINE PHOSPHATASE 95 U/L (50-136); ASPARTATE AMINOTRANSFERASE 25 U/L (15-37); BILIRUBIN,TOTAL 0.2 mg/dL (0.2-1.0); CARBON DIOXIDE 30 mmol/L (21-32); CHLORIDE 105 mmol/L (98-107); GLUCOSE 97 mg/dL (74-106); TOTAL PROTEIN, SERUM 7.5 g/dL (6.4-8.2); UREA NITROGEN, BLOOD 16 mg/dL (7-18)
[2017-06-22] VITALS: BP 138/82
[2017-06-22 00:12] LABS: *AMPHETAMINE, URINE POSITIVE (NEGATIVE); *BARBITURATE, URINE NEGATIVE (NEGATIVE); *CANNABINOID, URINE NEGATIVE (NEGATIVE); *COCCAINE, URINE NEGATIVE (NEGATIVE); *OPIATE, URINE POSITIVE (NEGATIVE); *PHENCYCLIDINE SCREEN,URINE NEGATIVE (NEGATIVE)
[2017-06-22 04:00] VITALS: BP 107/63
--- NOTE | 2017-06-22 04:00 | NUR ---
COWS deferred for sleep BP 107/63, pulse 70, resp 16, Spo2 99% RA, temp [address], will continue to monitor.
--- NOTE | 2017-06-22 07:00 | NUR ---
End of Shift Pt is a 26 year old male admitted on 06/21/17 for Opiate withdrawal, placed on 4 day Subutex taper to be started on 06/22/2017. Pt used Heroin and Meth an hour prior to arrival to [facility], COWS 5 during shift. Pt currently in room, sleeping, with safety measures in place. No medications administered during shift. Pt slept for 6 hours, intake of 909 ml PO, voids x1 and stool x0. Safety measures in place, will continue to monitor.
--- NOTE | 2017-06-22 07:41 | NUR ---
BEGINNING OF SHIFT Patient endorsement report received from tower operator nurse, all pertinent information discussed. Patient is a 26 year old male with admitting Dx: Opiate withdrawal. Patient continues under very close observation, patient scheduled to begin a 5 day subutex taper as ordered, scheduled to begin day 1 of taper, Per tower operator patient with last ciwa score of: 6. Received no PRN medications during tower operator. , Slept for 6 hours, Fall and seizure precautions observed at all times. Patient received awake, alert and oriented x4, educated regarding plan of care for the day, will continue to monitor closely. safety measures in place.
[2017-06-22 08:32] VITALS: BP 120/81
[2017-06-22] MEDS: BUPRENORPHINE HCL 2 MG TAB.SUBL SL SCH ×3 (08:33→21:44)
[2017-06-22] MEDS: GABAPENTIN 300 MG CAPSULE PO SCH ×2 (08:33→21:44)
[2017-06-22] MEDS ORDERED: TUBERCULIN,PURIF.PROT.DERIV. 5 TU/0.1 ML TEST ID ONE (09:00)
[2017-06-22] MEDS: NEOMY/BACITRAC/POLYMI OINT 28.35 GM TUBE TOP SCH ×2 (09:19→16:30)
[2017-06-22 13:44] VITALS: BP 148/77
[2017-06-22 17:43] VITALS: BP 133/74
--- NOTE | 2017-06-22 18:59 | NUR ---
END OF SHIFT Patient alert and oriented x4, appears with anxious affect, patient with worried and anxious facial expression. Patient easily overwhelmed. Patient noted guarded and worried. Patient continues with ongoing 4 day Subutex taper as ordered, for s/sx of withdrawal, with admitting Dx: etoh withdrawal, patient continues on day 1 of taper. Patient presented with: flushed, restlessness, dilated pupils, bone and joint aches, nasal congestion, tremors, irritable, and gooseflesh, BP WNL, during shift. Initial cow score of: 12, last cow score of: 8, detox medication effective at reducing withdrawal symptoms. Patient was encouraged adequate PO fluid intake as tolerated, patient encouraged to develop coping skills and utilization of non pharmacological interventions. Patient was encouraged to participate in therapy session.Encouraged diversional activities to alleviate anxiety. Denies any SI/HI. Safety measures are in place. Call light kept with in reach, continues under close observation. Patient endorsed to shift supervisor nurse, all pertinent information was discussed. Will continue to monitor.
--- NOTE | 2017-06-22 19:30 | NUR ---
START OF SHIFT NOTE : Pt is a 26 year old male who admitted to [facility] for medical supervised withdrawal from Heroin and Meth on 06/21/2017 ; full code, regular diet with NKA. Pt. placed on 4 day Subutex taper on 06/22/2017 . Pt is observed with flat affect, anxiety , worried about his familys future and professional life. He complains of difficulty falling asleep, waking up frequently, increased level of anxiety. Listen to the patient , motivated him to stay sober after Detox and Rehabilitation, to think positive about future. Last COWS=8 at 16:00. Safety measures are in place. Call light kept within reach, continues under close observation. Patient endorsed to assistant shift supervisor nurse, all pertinent information was discussed. Will continue to monitor.
[2017-06-22 20:00] VITALS: BP 135/65
--- NOTE | 2017-06-22 21:00 | NUR ---
PRN VISTARIL, BENADRIL PRN VISTARIL, BENADRIL PO GIVEN FOR COMPLAINTS OF ANXIETY AND INSOMNIA. Safety measures in place : bed on lowest position with side rails x2 up for safety, call light within reach. Will continue to monitor closely and offer help.
[2017-06-22] MEDS: HYDROXYZINE PAMOATE 25 MG CAPSULE PO PRN (21:44)
[2017-06-22] MEDS: diphenhydrAMINE 50 MG CAPSULE PO PRN (21:44)
--- NOTE | 2017-06-22 22:00 | NUR ---
RE-ASSESSMENT CARMEN BIRD Pt. is sleeping, RR=16, unlabored and even . Safety measures in place : bed on lowest position with side rails x2 up for safety, call light within reach. Will continue to monitor closely and offer help.
--- NOTE | 2017-06-23 06:52 | NUR ---
START OF SHIFT NOTE : Pt is a 26 year old male who admitted to [facility] for medical supervised withdrawal from Heroin and Meth on 06/21/2017. Pt. placed on 4 day Subutex taper on 06/22/2017 . Pt. is compliant with a TX plan, PRN given during hourly shift : Benadryl, Vistaril. COWS taken when pt. was awake, last COWS=5 at 04:00. Intake= 710 , voided x 1 , slept=7 hours. Safety measures in place : bed on lowest position with side rails x2 up for safety, call light within reach. Will continue to monitor closely and offer help.
--- NOTE | 2017-06-23 07:30 | NUR ---
START OF SHIFT Pt 26 y/o male admitted for opiate withdrawal. Pt received in room on bed with eyes closed resting, but easily arousable to name. Pt alert and oriented to name, place, and time Perrla. Skin warm and moist to touch. Respirations even and unlabored. Bilateral hand tremors noted. Pt with c/o chills and sweats this morning. Clothes scattered throughout the room. Pt appears disheveled and unkempt. Pt malodorous. It was reported that pt slept for 7 hours last night. Last reported cows=6 @ 0400. Pt is on a 4 day subutex taper and is on day 2. Bed on lowest position with side rails x2 up for safety. Call light within reach. No distress noted at this time.
[2017-06-23 08:00] VITALS: BP 133/77
[2017-06-23] MEDS: GABAPENTIN 300 MG CAPSULE PO SCH ×3 (08:39→21:32)
[2017-06-23] MEDS: NEOMY/BACITRAC/POLYMI OINT 28.35 GM TUBE TOP SCH ×2 (08:41→16:35)
[2017-06-23] MEDS ORDERED: BUPRENORPHINE HCL 2 MG TAB.SUBL SL SCH (09:00)
[2017-06-23] MEDS ORDERED: KETOROLAC TROMETHAMINE 30 MG INJ IM PRN (11:15)
[2017-06-23 12:00] VITALS: BP 145/87
[2017-06-23 12:07] LABS: HEPATITIS B SURFACE AG Negative (Negative)
[2017-06-23] MEDS: BUPRENORPHINE HCL 2 MG TAB.SUBL SL SCH ×2 (14:34→21:32)
[2017-06-23 16:00] VITALS: BP 126/68
--- NOTE | 2017-06-23 17:19 | NUR ---
Therapist prompted client to come to group.
--- NOTE | 2017-06-23 18:36 | NUR ---
END OF SHIFT Pt 26 y/o male admitted for opiate withdrawal. Pt alert and oriented to name, place, and time Perrla. Skin warm and moist to touch. Respirations even and unlabored. Bilateral hand tremors noted. Clothes scattered throughout the room. Pt appears disheveled and unkempt. Pt with low motivation for self care. COWS= 11@0900, 10 @1200, and 10@ 1600.Pt was seen by MD today. Pt medication compliant and tolerated well. Pt is on a 4 day subutex taper and is on day 2. Bed on lowest position with side rails x2 up for safety. Call light within reach. No distress noted at this time.
--- NOTE | 2017-06-23 19:30 | NUR ---
START OF SHIFT Pt is a 26 y/o male admitted on 06/21/17 for opiate and meth withdrawal. Pt is on day 2 of 4 Subutex taper, tolerating well. Per day shift nurse, last COWS 10 and no PRNs administered. Upon assessment pt is laying in bed with depressed and flat affect. Pt presents with anxiety, agitation, restlessness, body aches, difficulty falling and staying asleep, nasal congestion, yawning, fatigue, difficulty concentrating, anhedonia and dysphoria. Pt is withdrawn and appears disheveled and unkempt with slumped posture. Medications due. Safety measures in place. Call light within reach. Will continue to monitor.
[2017-06-23 20:00] VITALS: BP 130/78
[2017-06-23] MEDS: BACLOFEN 10 MG TABLET PO SCH (21:31)
[2017-06-23] MEDS: diphenhydrAMINE 50 MG CAPSULE PO PRN (21:32)
[2017-06-23] MEDS: HYDROXYZINE PAMOATE 25 MG CAPSULE PO PRN (21:32)
--- NOTE | 2017-06-23 21:32 | NUR ---
PRN BENADRYL, ROBAXIN AND VISTARIL ADMINISTRATION Pt reports body aches 6/10, appears anxious and pt requests sleep aid for insomnia. Safety measures in place. Call light within reach. Will continue to monitor.
--- NOTE | 2017-06-23 22:32 | NUR ---
PRN BENADRYL, ROBAXIN AND VISTARIL REASSESSMENT Pt laying in bed with eyes closed, snoring. Respirations even and unlabored. Safety measures in place. Call light within reach. Will continue to monitor.
--- NOTE | 2017-06-24 | NUR ---
COWS DEFERRED AND VITALS REFUSED Pt laying in bed with eyes closed, COWS deferred, to be assessed when pt is awake per orders. Vitals refused. Respirations even and unlabored. Safety measures in place. Call light within reach. Will continue to monitor.
--- NOTE | 2017-06-24 07:13 | NUR ---
END OF SHIFT Pt is a 26 y/o male admitted on 06/21/17 for opiate and meth withdrawal. Pt on 4 day Subutex taper, tolerating well. Pt presented with depressed and flat affect. Pt presents with anxiety, agitation, restlessness, body aches, difficulty falling and staying asleep, nasal congestion, yawning, fatigue, difficulty concentrating, anhedonia and dysphoria. Pt was withdrawn, appears disheveled and unkempt with slumped posture. Scheduled medications and PRN Benadryl, Vistaril and Robaxin administered, effective in S/S of withdrawal as verbalized by pt. Last COWS 7. Pt slept 10 hours. Intake 600 ml, void x 2, stool x 0. Safety measures in place. Call light within reach. Pts needs have been met. Endorsed to day shift nurse.
--- NOTE | 2017-06-24 07:30 | NUR ---
START OF SHIFT Pt 26 y/o male admitted for opiate withdrawal. Pt received in room on bed with eyes closed resting, but easily arousable to name. Pt alert and oriented to name, place, and time Perrla. Skin warm and moist to touch. Respirations even and unlabored. Bilateral hand tremors noted. Pt with complaints of sweats this morning. Clothes scattered throughout the room floor. Pt appears disheveled and unkempt with hair uncombed. Pt malodorous. It was reported that pt slept for 10 hours last night. Last reported cows=7 @ 0400. Pt is on a 4 day subutex taper and is on day 3. Bed on lowest position with side rails x2 up for safety. Call light within reach. No distress noted at this time.
[2017-06-24 08:00] VITALS: BP 106/74
[2017-06-24] MEDS: GABAPENTIN 300 MG CAPSULE PO SCH ×3 (08:30→20:47)
[2017-06-24] MEDS: BACLOFEN 10 MG TABLET PO SCH ×2 (08:30→20:47)
[2017-06-24] MEDS: BUPRENORPHINE HCL 2 MG TAB.SUBL SL SCH ×3 (08:30→20:47)
[2017-06-24] MEDS: NEOMY/BACITRAC/POLYMI OINT 28.35 GM TUBE TOP SCH ×2 (08:32→16:37)
[2017-06-24 12:00] VITALS: BP 118/65
[2017-06-24 16:00] VITALS: BP 107/64
--- NOTE | 2017-06-24 18:34 | NUR ---
START OF SHIFT NOTE: Patient presented for Opioid/Heroin via IV and Methamphetamine via IV withdrawal, continues 4 Day Subutex Taper which tolerated well. Upon endorsement patient assessed in his room. Room appears dirty with dirty linens, refused change, and clothes thrown on floor. Patient noted unshaven with uncombed hair and with poor eye contact. His clothes are dirty and patient refused to change them. Education for safety and hygiene care provided to patient. Encouraged to independently perform hygiene care. Patient expressed his feelings as, "My anxiety increased because I am worried about my 6 weeks girlfriend ". Latest COWS=9 @1600 per day shift nurse report. Patient presented with anxiety, agitation, depression, nervousness, stomach cramps, sweating, tremors, and insomnia. Encouraged express feelings. No PRN Medications given during day per day shift nurse report. Calm and safety environment with minimized noises was provided. All needs met. Safety measures in the place: Call light within reach, bed in the lowest position and locked, padded rails up x2. Patient endorsed by day shift nurse.
--- NOTE | 2017-06-24 18:34 | NUR ---
END OF SHIFT Pt 26 y/o male admitted for opiate withdrawal. Pt alert and oriented to name, place, and time Perrla. Skin warm and moist to touch. Respirations even and unlabored. Bilateral hand tremors noted. Clothes scattered throughout the room. Pt appears disheveled and unkempt with hair uncombed. Pt observed wearing the same clothes from the previous day. Pt with low motivation for self care. Pt observed isolative to room throughout the day. Pt did not attend group activity today. COWS= 9@0800, 9@1200, and 9@ 1600.Pt was seen by MD today. Pt medication compliant and tolerated well. Pt is on a 4 day subutex taper and is on day 3. Bed on lowest position with side rails x2 up for safety. Call light within reach. No distress noted at this time.
[2017-06-24 20:21] VITALS: BP 140/72
[2017-06-24] MEDS: diphenhydrAMINE 50 MG CAPSULE PO PRN (20:47)
--- NOTE | 2017-06-24 20:47 | NUR ---
PRN BENADRYL 50 MG 1 CAP PO ADMINISTRATION Patient c/o insomnia. PRN Benadryl 50 mg 1 cap PO administrated with full glass of water as ordered. Patient tolerated well. All needs met. Safety measures on place. Call light within reach, bed in lowest position and locked, padded rails up bilaterally rails up bilaterally. Will continue to monitor closely.
--- NOTE | 2017-06-24 21:47 | NUR ---
RE-ASSESSMENT Patient is sleeping. Respirations even and unlabored. RR 16. PRN Benadryl 50 mg 1 cap PO administrated for insomnia @2035 was effective. All needs met. Safety measures on place. Call light within reach, bed in lowest position and locked, padded rails up bilaterally rails up bilaterally. Will continue to monitor closely.
[2017-06-25] VITALS: BP 129/82
[2017-06-25 04:00] VITALS: BP 138/67
--- NOTE | 2017-06-25 07:12 | NUR ---
END OF SHIFT NOTE: Patient is a 26 year old male admitted for Alcohol (Vodka) withdraw. He is continues 4 Day Subutex Taper which tolerated well. Patient noted disheveled with poor eye contact. Patient 's c/o feelings of worthlessness. Patient denied SI/HI. Emotional support provided, and patient 's reassuring. The patient was educated in safety and hygiene care. The patient was encouraged to independently perform hygiene care. Withdrawal symptoms was closely monitored. COWS=9 @2000, COWS=7 @0000. Last COWS=8 @0400. Patient presented with anxiety, agitation, depression, irritability, fatigue, nervousness, c/o abdominal pain, sweating, and insomnia. PRN Benadryl 50 mg 1 cap PO administrated for insomnia @2046 was effective. Safe and calm environment with minimized noises was provided. Patient slept 5 hours, intake 1,091 ml, voided x3. All needs met. Safety measures in the place by hospital policy: Call light within reach, bed in the lowest position and locked, padded rails up x2. Patient endorsed to day shift nurse.
--- NOTE | 2017-06-25 07:30 | NUR ---
START OF SHIFT Pt 26 y/o male admitted for opiate withdrawal. Pt received in room on bed with eyes closed resting, but easily arousable to name. Pt alert and oriented to name, place, and time Perrla. Skin warm and moist to touch. Respirations even and unlabored. Bilateral hand tremors noted. Clothes scattered throughout the room floor. Open empty bottles of drinks scattered throughout bedside shelf. Pt appears disheveled and unkempt with hair uncombed. Pt malodorous. It was reported that pt slept for 9 hours last night. Last reported cows=8 @ 0400. Pt is on a 4 day subutex taper and is on day 4. Bed on lowest position with side rails x2 up for safety. Call light within reach. No distress noted at this time.
[2017-06-25 08:00] VITALS: BP 118/66
[2017-06-25] MEDS: BACLOFEN 10 MG TABLET PO SCH ×2 (08:33→20:15)
[2017-06-25] MEDS: GABAPENTIN 300 MG CAPSULE PO SCH ×3 (08:33→20:15)
[2017-06-25] MEDS ORDERED: BUPRENORPHINE HCL 2 MG TAB.SUBL SL SCH (09:00)
[2017-06-25 12:00] VITALS: BP 121/71
[2017-06-25 16:00] VITALS: BP 138/82
--- NOTE | 2017-06-25 18:46 | NUR ---
END OF SHIFT Pt 26 y/o male admitted for opiate withdrawal. Pt alert and oriented to name, place, and time Perrla. Skin warm and dry to touch. Respirations even and unlabored. Bilateral hand tremors noted. Pt appears disheveled and unkempt with hair uncombed. Pt observed wearing the same clothes from the previous day. Pt with low motivation for self care. Pt observed isolative to room throughout the day. Pt did not attend group activity today. COWS= 9@0800, 7@1200, and 5@ 1600.Pt was seen by MD today. Pt medication compliant and tolerated well. Pt is on a 4 day subutex taper and is on day 4. Bed on lowest position with side rails x2 up for safety. Call light within reach. No distress noted at this time.
--- NOTE | 2017-06-25 19:45 | NUR ---
Start of Shift Notes Received 26 y/o male px, admitted for medically supervised withdrawal of Heroin. Last reported COWS was 5. Px finished his 4 day Subutex taper, px tolerated well. Px is to be D/C tomorrow 06/26/2017. During the rounds at 1945, px is awake sitting on bed. Unfinished snacks noted on bed side table. Px stated that his anxiety is 5/10 and wanted to have Benadryl to help him sleep tonight. Bed on low and fowlers position, side rails up 2x, and call light within reach. We'll continue to monitor.
[2017-06-25 20:00] VITALS: BP 151/87
[2017-06-25] MEDS: diphenhydrAMINE 50 MG CAPSULE PO PRN (20:15)
--- NOTE | 2017-06-25 20:15 | NUR ---
PRN meds Px requested for Benadryl to help him sleep tonight. Benadryl 50 mg/cap, 1 cap given and Clonidine 0.1 mg/tab, 1 tab given PO as PRN meds for BP= 151/87 and [place]=70. We'll continue to monitor.
[2017-06-26] VITALS: BP 120/63
[2017-06-26 04:00] VITALS: BP 126/64
--- NOTE | 2017-06-26 04:00 | NUR ---
COWS deferred COWS deferred at 0000 and 0400 due to the px is asleep, to reassess if the px is awake. We'll continue to monitor.
--- NOTE | 2017-06-26 07:18 | NUR ---
End of Shift Notes During the shift, px was given Benadryl 50 mg PO as requested and it was effective, px slept for 8 hours. Px was given Clonidine 0.1 mg PO for anxiety and BP= 151/87 mmHg. It was effective. Latest BP= 126/64. Pxs oral intake of 1 L, voided 2x, no BM. Bed on low and fowlers position, side rails up 2x, and call light within reach. At 0630, px was asleep on bed. We'll continue to monitor. Px endorsed to AM shift nurse.
--- NOTE | 2017-06-26 07:30 | NUR ---
START OF SHIFT NOTE Received report from night nurse, 26 year old male admitted for Heroin/Meth withdrawal. Patient completed his 4 days Subutex taper tolerated well. Per endorsement pt was given PRN Clonidine, Benadryl effective per nurse. Patient slept for 8 hours, last COWS was-5. Received pt asleep responsive to verbal and tactile stimuli,pt scheduled for discharge today. Breathing normal no SOB noted. Skin intact warm and dry to touch. All safety measures in place. Will cont to monitor.
[2017-06-26 08:00] VITALS: BP 113/65
[2017-06-26] MEDS: BACLOFEN 10 MG TABLET PO SCH (08:16)
[2017-06-26] MEDS: GABAPENTIN 300 MG CAPSULE PO SCH (08:17)
--- NOTE | 2017-06-26 09:30 | NUR ---
DISCHARGE NOTE Patient has been discharged from [facility] Patient is in Stable condition, VS WNL. Last COWS score was -2. Denies suicidal and homicidal and prescriptions. Patient did not bring any medication with him from home. Pt has been discharged from [facility] on 06/26/17 at 0930. has been Notified.
== END 2017-06-26 09:30 | disposition other institution (70) | DRG 895 ==
LOC: SRC 22:19
PROVIDERS: ADMIT Internal Medicine; ATTEND Internal Medicine
PROC: HZ2ZZZZ Detoxification Services for Substance Abuse Treatment (ICD-10-PCS; principal; 2017-06-21)
PROC: HZ31ZZZ Individual Counseling for Substance Abuse Treatment, Behavioral (ICD-10-PCS; 2017-06-23)
DX: F11.23 Opioid dependence with withdrawal (principal); I15.9 Secondary hypertension, unspecified; F17.210 Nicotine dependence, cigarettes, uncomplicated; F41.9 Anxiety disorder, unspecified; G47.00 Insomnia, unspecified; S00.80XD Unspecified superficial injury of other part of head, subsequent encounter; L08.9 Local infection of the skin and subcutaneous tissue, unspecified; Y33.XXXD Other specified events, undetermined intent, subsequent encounter; Z91.89 Other specified personal risk factors, not elsewhere classified; Z81.1 Family history of alcohol abuse and dependence; F15.23 Other stimulant dependence with withdrawal; F32.9 Major depressive disorder, single episode, unspecified
CPT/HCPCS: 36415; 80307; 80324; 80361; 83735; 85025; 86592; 86705; 86803; 87340; 87806; G0480; Q0163